=== PATIENT | female | born 1950 | race Caucasian/White ===

== ENCOUNTER 2020-06-19 12:39 | Emergency (ER) | payer MEDICARE ==
[~2020-06-19] VITALS: Ht 172.7 cm; Wt 77.1 kg
[2020-06-19 13:42] LABS: ABSOLUTE BASOPHILS 0.1 thou/uL (0.0-0.2); ABSOLUTE EOSINOPHILS 0.3 thou/uL (0.0-0.7); ABSOLUTE LYMPHOCYTES 1.7 thou/uL (0.8-5.3); ABSOLUTE MONOCYTES 0.5 thou/uL (0.0-1.2); ABSOLUTE NEUTROPHILS 6.5 thou/uL (1.6-8.1); BASOPHILS 0.7 %; HEMATOCRIT 35.6 % (37.0-47.0); HEMOGLOBIN 11.2 gm/dL (12.0-15.0); MCH 20.4 pg (26.0-34.0); MCHC 31.4 g/dL (28.0-37.0); MCV 65.1 fL (80.0-100.0); MONOCYTES 5.2 %; MPV 8.7 fl. (7.2-11.1); NUCLEATED RBCS 0 /100WBC; PLATELET COUNT* 348 thou/uL (150-400); POLYS 72.1 %; RBC 5.47 mil/uL (4.20-5.00); RDW-CV 21.3 % (10.5-14.5)
[2020-06-19 13:49] LABS: CALCIUM 8.7 mg/dL (8.5-10.1); CREATININE 0.9 mg/dL (0.6-1.3); URIC ACID* 3.8 mg/dL (2.6-7.2)
[2020-06-19 14:20] LABS: ANISOCYTOSIS 2+; HYPOCHROMASIA 3+; MICROCYTES 3+; POIKILOCYTOSIS Occasional; POLYCHROMASIA Occasional
[2020-06-19 15:12] LABS: ESR (SEDRATE) 37 mm/hr (0-30)
[2020-06-19] MEDS ORDERED: NORCO 5-325 TA1 EAC2 PO (15:16)
[2020-06-19] MEDS ORDERED: DOXYCYCLINE 10100 MG PO (15:16)
[2020-06-19] MEDS ORDERED: PREDNISONE 10 M10 MG PO (15:16)
[2020-06-19] MEDS ORDERED: INDOMETHACIN 5050 M1 PO (15:16)
[2020-06-19 15:42] VITALS: BP 101/75
== END 2020-06-19 15:43 | disposition home or self-care (01) ==
LOC: M.ERS 12:39
PROVIDERS: Nurse Practitioner Family
DX: M25.531 Pain in right wrist (principal)